=== PATIENT | male | born 1935 | race Caucasian/White ===

== ENCOUNTER 2017-01-20 09:13 | Emergency (ER) | payer MEDICARE, BC ==
--- NOTE | 2017-01-20 10:14 | ER PHYSICIAN DOCUMENTATION ---
Physician Documentation [facility] Name:Andrew Tilley Age:82 yrs Sex:Male :1935 Arrival Date:01/20/2017 Time:09:13 Bed6 Private MD:Jennifer Justice ED, John Disposition: 01/20/17 10:04 Discharged to Home/Self Care. Impression: Lower Extremity Pain. - Condition is Good. - Discharge Instructions: ARTHRITIS Osteo - OSTEOARTHRITIS. - Medical Reconciliation form form. - Follow up: Jennifer Justice MD; When: As needed; Reason: Continuance of care. - Problem is new. - Symptoms have improved. HPI: 01/20 12:40 This 82 yrs old Male presents to ER via Private Vehicle with complaints of jm Knee Pain - LFT. 12:40 The patient presents with an injury. The complaints affect the left knee. Context: jm resulted from a direct blow, the patient can fully bear weight. Onset: The symptom(s)/episode began/occurred yesterday, and became persistent today. Treatment prior to arrival includes: icing the affected extremity. The patient has not experienced similar symptoms in the past. Pt is aware of his arthirits, but he banged his knee against some rocks and today he has some pain. He is wondering if she chipped off some part of his bone. . Historical: - Allergies: Morphine; - Home Meds: 1. aspirin 81 mg oral tab 1 tab once daily 2. lansoprazole 30 mg oral cpDR 2 caps once daily 3. Synthroid 75 mcg oral tab 1/2 once daily 4. Pravachol 40 mg oral tab 1 tab once daily 5. [id number] - PMHx: TIA; GERD; hyperlipidemia; HYPOTHYROIDISM; Eye Pain - left eye floater and cataract (November 01, 2014); - PSHx: CAROTID SURGERY; KNEE SURGERY; vocal cords surgery; - Tetanus: < 10 years. - Ebola Screening: : Patient negative for fever greater than or equal to 101.5 degrees Fahrenheit, and additional compatible Ebola Virus Disease symptoms. - Immunization history: Flu Vaccine None. - Social history: Smoking status: Patient states former smoker of tobacco. pipe. ROS: 12:40 MS/extremity: Positive for pain, tenderness, Negative for swelling. jm 12:40 Skin: Negative for swelling. Exam: 12:40 Constitutional: The patient appears alert, awake. 12:40 Musculoskeletal/extremity: Extremities: grossly normal except: noted in the medial aspect of left knee: tenderness, There is no evidence of contusion, decreased ROM, ecchymosis, ROM: intact in all extremities, Weight bearing: can bear weight with assistance only, uses cane. 12:40 Skin: Appearance: Color: pink, ecchymosis, not noted, no rash present. Vital Signs: 09:26 BP 140 / 74 RA Sitting; Pulse 75; Resp 16; Temp 97.4(O); Pulse Ox 95% ; Weight 72.57 kg la (R); Height 5 ft. 8 in. (172.72 cm); Pain 09/06; 09:26 Body Mass Index 24.33 (72.57 kg, 172.72 cm) la MDM: 09:18 Patient medically screened. 12:43 Differential diagnosis: closed fracture, contusion. Data reviewed: vital signs, nurses jm notes, radiologic studies, and as a result, I will discharge patient. Counseling: I had a detailed discussion with the patient and/or guardian regarding: the historical points, exam findings, and any diagnostic results supporting the discharge/admit diagnosis, the need for outpatient follow up, with the patient's primary care provider, a orthopedic surgeon. ED course: Pt w what looks like a small chip on the medial aspect of the tiabia, right where he c/o pain. . 01/21 20:35 Order name: KNEE; [address] [place] [id number] EDMS Dispensed Medications: No medications were administered Signatures: Tari Land, Eitan Workman RN, lp, MD MD jm Alexander, Linda la
--- NOTE | 2017-01-20 10:14 | ER NURSING DOCUMENTATION ---
Nurse's Notes [facility] Name:Andrew Tilley Age:82 yrs Sex:Male :1935 Arrival Date:01/20/2017 Time:09:13 Bed6 Private MD:Jennifer Justice Diagnosis:Lower Extremity Pain Presentation: 01/20 09:20 Presenting complaint: Patient states: around 1700 yesterday he was walking and felt a la sharp pain in left medial knee. denies injury, increased pain with walking. took tylenol at 0900 with minimal relief. Transition of care: Home. 09:20 Method Of Arrival: Private Vehicle la 09:20 Acuity: JOHNATHON 4 la Triage Assessment: : General: Appears comfortable, Behavior is appropriate for age, cooperative, pleasant. la Pain: Complains of pain in left medial knee Pain currently is 2 out of 10 on a pain scale. At worst was 10 out of 10 on a pain scale. Pain began 1 day ago Alleviated by repositioning, Aggravated by increased activity. EENT: No deficits noted. Neuro: Level of Consciousness is awake, alert, obeys commands, Oriented to person, place, time. Cardiovascular: No deficits noted. Respiratory: No deficits noted. GI: No deficits noted. : No deficits noted. Derm: No deficits noted. Musculoskeletal: Circulation, motion, and sensation intact Capillary refill < 3 seconds Range of motion limited in left knee Swelling present in left medial knee. Historical: - Allergies: Morphine; - Home Meds: 1. aspirin 81 mg oral tab 1 tab once daily 2. lansoprazole 30 mg oral cpDR 2 caps once daily 3. Synthroid 75 mcg oral tab 1/2 once daily 4. Pravachol 40 mg oral tab 1 tab once daily 5. [id number] - PMHx: TIA; GERD; hyperlipidemia; HYPOTHYROIDISM; Eye Pain - left eye floater and cataract (November 01, 2014); - PSHx: CAROTID SURGERY; KNEE SURGERY; vocal cords surgery; - Tetanus: < 10 years. - Ebola Screening: : Patient negative for fever greater than or equal to 101.5 degrees Fahrenheit, and additional compatible Ebola Virus Disease symptoms. - Immunization history: Flu Vaccine None. - Social history: Smoking status: Patient states former smoker of tobacco. pipe. Screenin:29 Infectious Disease Risk None. Abuse screen: Denies threats or abuse. Nutritional la screening: No deficits noted. Assessment: 09:29 See Triage Assessment done by same RN. la Vital Signs: 09:26 BP 140 / 74 RA Sitting; Pulse 75; Resp 16; Temp 97.4(O); Pulse Ox 95% ; Weight 72.57 kg la (R); Height 5 ft. 8 in. (172.72 cm); Pain 2/10; 09:26 Body Mass Index 24.33 (72.57 kg, 172.72 cm) la ED Course: 09:15 Patient arrived in ED. ds 09:15 Jennifer Justice MD is Private Physician. ds 09:18 Eitan Minor MD is Attending Physician. carmen 09:20 Liza Gama is Primary Nurse. la 09:21 Triage completed. lp 09:30 Valuables Remains with patient Patient has correct armband on for positive la identification. Bed in low position. Call light in reach. Side rails up X 1. Door closed. Ice pack to injury. Verbal reassurance given. Pillow given. 09:52 Port Xray Completed. hz 09:56 Portable x-ray done. la 10:04 Jennifer Justice MD is Referral Physician. carmen Administered Medications: No medications were administered Outcome: 10:04 Discharge ordered by . carmen 10:14 Discharged to home ambulatory. lp 10:14 Condition: stable 10:14 Instructed on discharge instructions, follow up and referral plans. medication usage. 10:14 Patient left the ED. lp Signatures: Tari Land RN RN lp Srot, Ladan, Reg Reg ds Eitan Minor MD MD jm Alexander, Linda la Zolnowski, Heather
--- NOTE | 2017-01-21 19:25 | RADIOLOGY REPORT ---
Three views of the left knee demonstrate no displaced fracture or dislocation. Minimal tricompartmental degenerative joint disease is noted. IMPRESSION: Minimal degenerative changes. No displaced injury is identified. If clinically indicated, further evaluation and/or follow-up may be of benefit. [facility] CENTERJoseph
== END 2017-01-20 10:14 | disposition home or self-care (01) ==
LOC: ER 09:13
DX: M79.662 Pain in left lower leg (principal); W22.8XXA Striking against or struck by other objects, initial encounter; Y92.89 Other specified places as the place of occurrence of the external cause; Y93.01 Activity, walking, marching and hiking; Z79.899 Other long term (current) drug therapy; Z79.82 Long term (current) use of aspirin
CPT/HCPCS: 73562; 99283